=== PATIENT | male | born 1960 | race Caucasian/White ===

== ENCOUNTER 2022-11-04 00:54 | Day surgery (SDC) | payer OTHER, SELFPAY ==
[2022-10-16 14:56] VITALS: BMI 36.1
--- NOTE | 2022-11-03 15:55 | PM.HPGS ---
History of Present Illness History of Present Illness Consent: Risks, benefits, and alternatives have been discussed and questions answered. Patient agrees to proceed with procedure. Chief complaint: neoplasm screening Narrative: Gary Palacio is a 61 year old male referred for colon cancer screening. Review of Systems Review of Systems: All systems reviewed & are unremarkable except as noted in HPI and below PMFSH Past Medical History Medical History BMI over 35 History of CVA (cerebrovascular accident) Hyperlipidemia Hypertension Insomnia Low motivation Type 2 diabetes mellitus without complications Surgical History Surgical History History of rotator cuff surgery History of tonsillectomy and adenoidectomy Hx of heart artery stent Family History Family History Father No problems noted. Mother No problems noted. Sibling No problems noted. Social History Social History Smoking packs per day: 0.5 Smoking cigarettes per day: 10.0 Years smoked: 28 Smoking pack-years: 14.00 Smoking status: Current every day smoker Tobacco type: cigarettes Second hand tobacco smoke exposure: No Alcohol intake: current Substance use: never Substance use type: does not use Lack of Transportation: No Lack of Food: Never True Current Housing: I Have Housing Concerned About Future Housing: No Difficulty Paying Gas/Electric Bills: No Difficulty Paying for Meds: No Currently Unemployed: No Education: Trade/Vocational Certificate Difficulty w/ Childcare or Family Care: No Living arrangements: with family Occupation/Education: occupation 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[employer] Gender identity (if verbalized by the patient): Male Sexual Orientation (if Verbalized by the Patient): Straight or Heterosexual Spiritual care concerns: No Meds Home Medications and Allergies Home Medications Medication Instructions Recorded Confirmed Type aspirin 81 mg tablet,delayed 81 mg PO DAILY 06/13/21 10/16/22 History release (Adult Aspirin Regimen) lisinopril 20 mg tablet 20 mg PO DAILY #90 tabs 05/08/22 10/16/22 Rx metoprolol tartrate 25 mg tablet 25 mg PO BID #180 tabs 05/08/22 10/16/22 Rx tramadol 50 mg tablet 50 mg PO Q6H PRN pain #28 tabs 07/20/22 10/16/22 Rx dapagliflozin 5 mg tablet (Farxiga) 5 mg PO DAILY #90 tabs 09/14/22 10/16/22 Rx rosuvastatin 40 mg tablet (Crestor) 40 mg PO DAILY #90 tabs 09/14/22 10/16/22 Rx ticagrelor 90 mg tablet (Brilinta) 90 mg PO Q12H #180 tabs 09/14/22 11/04/22 Rx Allergies Allergy/AdvReac Type Severity Reaction Status Date / Time oxycodone Allergy Intermediate delusions Verified 11/04/22 07:20 Exam Const: General: alert Orientation/consciousness: patient oriented x3 Resp: Auscultation: clear to auscultation bilaterally Cardio: Rhythm: regular rhythm GI: GI Palp: Yes Soft to palpation and No Tenderness to palpation present (GI) Neuro: General: patient oriented x3 Assessment and Plan Assessment and plan (1) Colon cancer screening: Code(s): Z12.11 - Encounter for screening for malignant neoplasm of colon Status: Acute Assessment and Plan: Colonoscopy with possible biopsy or polypectomy or cautery or injection of substances.
[2022-11-04 07:25] VITALS: BP 105/58; PULSE 60; RESP 18; TEMP 35.8; O2SAT 98
[2022-11-04] MEDS: LACTATED RINGERS 1,000 ML 150 ML IV CONT (07:35)
[2022-11-04 07:40] LABS: Glucose Point of Care 127 mg/dl (65-105)
[2022-11-04 08:57] VITALS: BP 87/53; PULSE 57; RESP 23; O2SAT 96
[2022-11-04 09:07] VITALS: BP 91/58; PULSE 55; RESP 29; O2SAT 98
[2022-11-04 09:17] VITALS: BP 98/63; PULSE 55; RESP 17; O2SAT 100
== END 2022-11-04 09:27 | disposition home or self-care (01) ==
PROVIDERS: PCP Family Medicine; Visit Provider Internal Medicine Gastroenterology
PROC: 0DJD8ZZ Inspection of Lower Intestinal Tract, Via Natural or Artificial Opening Endoscopic (ICD-10-PCS; CPT 45378; principal; 2022-11-04 08:45)
DX: Z12.11 Encounter for screening for malignant neoplasm of colon (principal); K64.4 Residual hemorrhoidal skin tags; K64.8 Other hemorrhoids; K63.5 Polyp of colon; K62.1 Rectal polyp; I10 Essential (primary) hypertension; E78.5 Hyperlipidemia, unspecified; E11.9 Type 2 diabetes mellitus without complications; Z86.73 Personal history of transient ischemic attack (TIA), and cerebral infarction without residual deficits; F17.210 Nicotine dependence, cigarettes, uncomplicated; Z79.01 Long term (current) use of anticoagulants; Z79.82 Long term (current) use of aspirin; Z79.84 Long term (current) use of oral hypoglycemic drugs
CPT/HCPCS: 45385; 82948; 88305; J2704; J7120

== ENCOUNTER → 2023-07-27 08:41 | Outpatient (CLI) | payer OTHER, SELFPAY ==
--- NOTE | ~2023-07-27 | XR_ITS ---
Right Knee Technique: AP and lateral views were obtained. Clinical History: Pain Findings: No fracture or dislocation is seen. Osseous alignment is anatomic. Joint spaces are preserv ed without degenerative or erosive change. Soft tissues are unremarkable. No joint effusion is seen. Impression: Unremarkable right knee radiographs. Reviewed, dictated and finalized at location . 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
--- NOTE | ~2023-07-27 | XR_ITS ---
Left Knee Technique: AP and lateral views were obtained. Clinical History: Pain Findings: No fracture or dislocation is seen. Osseous alignment is anatomic. Mild degenerative spurri ng noted. Soft tissues are unremarkable. No joint effusion is seen. Impression: Mild degenerative spurring. Reviewed, dictated and finalized at [facility]. 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
== END ==
PROVIDERS: PCP Family Medicine; Visit Provider Nurse Practitioner Family
DX: M25.561 Pain in right knee (principal); M25.762 Osteophyte, left knee
CPT/HCPCS: 73560

== ENCOUNTER 2025-05-09 16:31 | Emergency (ER) | payer OTHER, SELFPAY ==
--- NOTE | ~2025-05-09 | XR_ITS ---
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 Findings: No acute fracture or malalignment. Moderate tricompartmental degenerative changes, small effusion Soft tissues unremarkable. Impression: No acute fracture or malalignment. Reviewed, dictated and finalized at location P. ERTY DISPOSAL OFFICER Impression: No acute fracture or malalignment.
[2025-05-09 16:40] VITALS: BP 124/73; PULSE 67; RESP 18; TEMP 36.3; O2SAT 97
--- NOTE | 2025-05-09 16:53 | ED.LOWEXIN ---
HPI - Extremity Injury (Lower) General Chief Complaint: Extremity Injury, Lower Stated Complaint: left knee injury Time Seen by Provider: 05/09/25 16:54 Source: patient Mode of arrival: ambulatory Limitations: no limitations History of Present Illness HPI Narrative: 64 yo M presents with L knee pain for 5 days. Fell in his driveway at home. Driveway was wet and wearing slippers. Slipped and fell on L knee. Ambulatory with limp. 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 Pain is worse at rest. Throbbing and aching. Has not slept past 2 days. All systems reviewed and negative except as noted above. Related Data Allergies Allergy/AdvReac Type Severity Reaction Status Date / Time oxycodone Allergy Intermediate delusions Verified 05/09/25 16:44 tramadol AdvReac Severe Other Verified 05/09/25 16:44 PMFSH Past Medical History Medical History BMI over 35 History of CVA (cerebrovascular accident) Hyperlipidemia Hypertension Insomnia Low motivation Type 2 diabetes mellitus without complications Surgical History Surgical History History of rotator cuff surgery History of tonsillectomy and adenoidectomy Hx of heart artery stent Family History Family History Father No problems noted. Mother No problems noted. Sibling No problems noted. Social History Social History Smoking packs per day: 0.5 Smoking cigarettes per day: 10.0 Years smoked: 28 Smoking pack-years: 14.00 Smoking status: Current every day smoker Tobacco type: cigarettes Second hand tobacco smoke exposure: No Alcohol intake: current Substance use: never Substance use type: does not use Lack of Transportation: No Lack of Food: Never True Current Housing: I Have Housing Concerned About Future Housing: No Difficulty Paying Gas/Electric Bills: No Difficulty Paying for Meds: No Currently Unemployed: No Education: Trade/Vocational Certificate Difficulty w/ Childcare or Family Care: No Living arrangements: with family Occupation/Education: occupation Additional occupation/education comments: [employer] Gender identity (if verbalized by the patient): Male Sexual Orientation (if Verbalized by the Patient): Straight or Heterosexual Spiritual care concerns: No Comments At time of signature, agree with nursing past medical, surgical, social and family history. There is no relevant family history pertinent to the presenting complaint. Exam Narrative: GENERAL: This is a well-nourished, well-developed patient, in no apparent distress. HEAD: normocephalic, atraumatic. EYES: PERRL. Sclera clear/white. Vision is grossly intact. EARS: External ears normal NOSE: External nose normal NECK: Neck supple, non-tender without lymphadenopathy, masses or thyromegaly. CARDIOVASCULAR: Regular rate and rhythm without murmurs, gallops, or rubs. RESPIRATORY: Clear to auscultation. Breath sounds equal bilaterally. No wheezes, rales, or rhonchi. SKIN: warm, Dry, intact with no suspicious lesions or rash, good texture and turgor. NEURO: awake, alert, and oriented to person, place and time. There were no obvious focal neurologic abnormalities. EXTREMITIES: swelling noted to L knee with effusion. tender to medial aspect. no instability noted. decreased ROM due to pain. Course Course Level of Care: Express Care Visit Vital Signs Vital signs: Vital Signs Temperature 36.3 C L 05/09/25 16:40 Pulse Rate 67 05/09/25 16:40 Respiratory Rate 18 05/09/25 16:40 Blood Pressure 124/73 05/09/25 16:40 Pulse Oximetry 97 05/09/25 16:40 Oxygen Delivery Room Air 05/09/25 16:40 Temperature 36.3 C L 05/09/25 16:40 Pulse Rate 67 05/09/25 16:40 Respiratory Rate 18 05/09/25 16:40 Blood Pressure 124/73 05/09/25 16:40 Pulse Oximetry 97 05/09/25 16:40 Oxygen Delivery Room Air 05/09/25 16:40 Reviewed MDM MDM Narrative Medical decision making narrative: X-ray of left knee negative for fracture. Patient offered Carlos wrap he declined. Patient states he has crutches and a cane both at home. Referred to orthopedics for further evaluation of his pain. Differential Diagnosis Differential Diagnosis: Patellar fracture, knee sprain, knee effusion Imaging Data Radiologist's impression: ITS Impressions Knee X-Ray 05/09/25 17:12 Impression: No acute fracture or malalignment. Discharge Plan Discharge Clinical Impression: Effusion of knee joint, left Patient Disposition: Home Condition: Stable Instructions: Swollen Knee Joint (ED) Additional Instructions: Take medication as prescribed. This medication may cause drowsiness. Do not drive while taking it. Wear Carlos wrap to compress swelling. Elevate when at rest. Call and schedule follow-up appointment with protein specialist. Patient Language: Hebrew Prescriptions: New tramadol 50 mg tablet 50 mg PO Q6H PRN (Reason: pain) Qty: 20 0RF No Action aspirin [Adult Aspirin Regimen] 81 mg tablet,delayed release (DR/EC) 81 mg PO DAILY Qty: 90 0RF lisinopril 20 mg tablet 20 mg PO DAILY Qty: 90 3RF atorvastatin 80 mg tablet 80 mg PO QHS Qty: 90 3RF metoprolol succinate 25 mg tablet extended release 24 hr 25 mg PO DAILY Qty: 90 3RF omeprazole 40 mg capsule,delayed release(DR/EC) 40 mg PO DAILY Qty: 30 3RF Follow-up/Referrals: Jarrell Zuñiga MD [Primary Care Provider, Family Practice] Rosalio Watson MD [Physician, Orthopedics] Referral Note: follow up with orthopedics Stand Alone Forms: Work/School Release IP Time of Disposition: 17:27
== END 2025-05-09 17:40 | disposition home or self-care (01) ==
PROVIDERS: Emergency Provider Nurse Practitioner Family; PCP Family Medicine
DX: M25.462 Effusion, left knee (principal); F17.210 Nicotine dependence, cigarettes, uncomplicated; I10 Essential (primary) hypertension; E11.9 Type 2 diabetes mellitus without complications; E78.5 Hyperlipidemia, unspecified; Z86.73 Personal history of transient ischemic attack (TIA), and cerebral infarction without residual deficits; Z95.5 Presence of coronary angioplasty implant and graft; Z79.82 Long term (current) use of aspirin
CPT/HCPCS: 73564; 99213; G0463